=== PATIENT | male | born 1975 | race Caucasian/White ===

== ENCOUNTER 2020-05-11 21:07 | Emergency (ER) | payer OTHER ==
[~2020-05-11] VITALS: Ht 177.8 cm; Wt 122.0 kg
[~2020-05-11 21:07] MED LIST: CIPRO
[2020-05-11] MEDS ORDERED: NORVASC 2.5 MG2.5 M1 PO (21:20)
[2020-05-11] MEDS ORDERED: LISINOPRIL10 MG PO (21:20)
[2020-05-11 21:42] LABS: ABSOLUTE EOSINOPHILS 0.1 thou/uL (0.0-0.7); ABSOLUTE LYMPHOCYTES 1.7 thou/uL (0.8-5.3); ABSOLUTE MONOCYTES 0.4 thou/uL (0.0-1.2); ABSOLUTE NEUTROPHILS 1.7 thou/uL (1.6-8.1); BASOPHILS 0.6 %; EOSINOPHILS 1.6 %; HEMATOCRIT 40.4 % (42.0-52.0); LYMPHOCYTES 43.8 %; MCH 28.7 pg (26.0-34.0); MCHC 34.7 g/dL (28.0-37.0); MCV 82.8 fL (80.0-100.0); MONOCYTES 9.6 %; MPV 6.7 fl. (7.2-11.1); NUCLEATED RBCS 0 /100WBC; PLATELET COUNT* 230 thou/uL (150-400); POLYS 44.4 %; RBC 4.88 mil/uL (4.50-6.00); RDW-CV 13.3 % (10.5-14.5); WBC 3.9 thou/uL (4.0-11.0)
[2020-05-11 21:49] LABS: CALCIUM 8.4 mg/dL (8.5-10.1); POTASSIUM 3.5 mmol/L (3.5-5.1)
[2020-05-12 00:38] VITALS: BP 160/96
== END 2020-05-12 00:39 | disposition home or self-care (01) ==
LOC: M.ERS 21:07
PROVIDERS: Emergency Medicine
DX: U07.1 COVID-19 (principal); E04.1 Nontoxic single thyroid nodule; Z90.49 Acquired absence of other specified parts of digestive tract; Z79.899 Other long term (current) drug therapy